=== PATIENT | female | born 2000 | race Hispanic/Latino ===

== ENCOUNTER 2023-02-04 09:46 | Emergency (ER) | payer MEDICAID, SELFPAY ==
[2023-02-04 10:00] VITALS: BP 128/78; PULSE 61; RESP 16; TEMP 37; O2SAT 99
[2023-02-04 10:10] VITALS: BP 128/78; PULSE 61; RESP 16; TEMP 37; O2SAT 99
--- NOTE | 2023-02-04 10:37 | ED.EXTPRO ---
HPI - Extremity Problem General Chief complaint: Extremity Problem,Nontraumatic Stated complaint: right hand feels numb Source: patient Mode of arrival: ambulatory Limitations: no limitations History of Present Illness HPI Narrative: Patient presents for evaluation of decreased range of motion of the right rest since yesterday. She indicates she when out drinking the night before. She fell asleep in a chair. She woke from sleep yesterday with decreased range of motion. She also has numbness in her right hand particularly in the 1st and 2nd digits. Numbness is improving. She reports some redness to the skin in the proximal aspect of right hand. She is right hand dominant. Denies any lateralizing deficits. Related Data Allergies Allergy/AdvReac Type Severity Reaction Status Date / Time No Known Allergies Allergy Mild Unverified 02/04/23 09:58 Review of Systems Review of Systems: CONSTITUTIONAL: Denies fever, chills, or sweats. EYES: Denies visual changes, redness, or discharge. ENT: Denies rhinorrhea, congestion, sore throat, or otalgia. CARDIOVASCULAR: Denies chest pain, palpitations, or edema. RESPIRATORY: Denies cough or dyspnea. GASTROINTESTINAL: Denies abdominal pain, nausea, vomiting, or diarrhea. GENITOURINARY: Denies dysuria or hematuria. SKIN: Reports mild redness in proximal aspect of right hand. Denies rash or itching. MUSCULOSKELETAL: Reports decreased ROM in right wrist NEUROLOGIC: Reports numbness in right hand. Denies headache, dizziness, or weakness. PSYCHIATRIC: Denies anxiety or depression. PMFSH Past Medical History Medical History No pertinent past medical history Surgical History Surgical History No pertinent past surgical history Family History Family History Mother Family history non-contributory Social History Social History Alcohol intake: current Alcohol use details: social Substance use: never Living arrangements: alone Gender identity (if verbalized by the patient): Female Exam Narrative: GENERAL: Well-appearing, well-nourished, and in no acute distress. HEAD: Normocephalic, atraumatic. EYES: PERRLA and EOMI. ENT: Nares clear, no rhinorrhea or epistaxis. Mucous membranes moist. Oropharynx without tonsillar hypertrophy exudate or other lesions. Bilateral TMs pearly matthews nonbulging NECK: Supple. No adenopathy or masses. No carotid bruits or JVD CHEST: Clear to auscultation. No respiratory distress. No wheezes rales or rhonchi HEART: Regular rate and rhythm. No murmur heard. Normal peripheral pulses. 2+bilateral radial pulses ABDOMEN: Soft, nontender, nondistended, normal active bowel sounds. EXTREMITIES: Wrist drop to right wrist with decreased range of motion. No crepitus or deformity. SKIN: Warm, dry, no rash. NEURO: No focal deficits. Sensation intact to right wrist and hand. 4/5 hand outside sales executive strength on right. 5/5 hand outside sales executive strength on the left. Alert and oriented x3. PSYCH: Normal mood and affect. Course Course Emergency Course: This is a 22-year-old female who presented for evaluation of numbness in the right hand and decreased ROM in right wrist. This is a classic presentation of Sunday night palsy. Pulses strong. Will dc with medrol dose nicolas and hand surgeon follow up. Advised she should purchase OTC velcro wrist splint. Go to ER for change in temperature or worsening symptoms. patient in agreement with plan of care. Level of Care: Express Care Visit Vital Signs Vital signs: Vital Signs Temperature 37.0 C 02/04/23 10:00 Pulse Rate 61 02/04/23 10:00 Respiratory Rate 16 02/04/23 10:00 Blood Pressure 128/78 02/04/23 10:00 Pulse Oximetry 99 02/04/23 10:00 Oxygen Delivery Room Air
== END 2023-02-04 10:40 | disposition home or self-care (01) ==
PROVIDERS: Emergency Provider Nurse Practitioner; PCP Physician Assistant
DX: G56.31 Lesion of radial nerve, right upper limb (principal)
CPT/HCPCS: 99213; G0463

== ENCOUNTER 2023-12-19 08:32 | Emergency (ER) | payer BC, SELFPAY ==
--- NOTE | 2023-12-19 08:34 | ED.URI ---
HPI - URI/Sore Throat General Chief Complaint: Upper Respiratory Infection Stated Complaint: Sore Throat Time Seen by Provider: 12/19/23 08:34 Source: patient Mode of arrival: ambulatory Limitations: no limitations History of Present Illness HPI Narrative: Patient is a 23-year-old female who presents with 2 days sore throat. Congestion and cough started yesterday. Patient for symptoms. Denies any fever, chills nausea vomiting diarrhea. Reports work is requesting COVID test. Related Data Home Medications Medication Instructions Recorded Confirmed No Home Medications 12/19/23 12/19/23 Allergies Allergy/AdvReac Type Severity Reaction Status Date / Time No Known Allergies Allergy Mild Verified 12/19/23 08:47 Review of Systems Review of Systems: All systems reviewed & are unremarkable except as noted in HPI and below Constitutional: Constitutional: Denies body ache(s), Denies chills, Denies fatigue, Denies fever(s), Denies headache(s), Denies malaise and Denies weakness Eyes: Eyes: Denies blurry vision, Denies itchy eyes and Denies loss of vision ENT: Denies otalgia, Denies headache(s), Reports nasal congestion, Denies sinus pain and Reports sore throat Cardiovascular: Cardiovascular: Denies chest pain, Denies irregular heart rhythm and Denies dyspnea Respiratory: Respiratory: Reports cough and Denies dyspnea Gastrointestinal: Gastrointestinal: Denies abdominal pain, Denies diarrhea, Denies nausea and Denies vomiting Musculoskeletal: Musculoskeletal: Denies back pain, Denies myalgias and Denies arthralgias Integumentary/Breasts: Skin/Breast: Denies pruritus and Denies rash Neurologic: Denies headache(s), Denies loss of vision and Denies weakness Psychiatric: Psychiatric: Reports no additional psychiatric complaints Endocrine: Endocrine: Denies fatigue Allergic/Immunologic: Allergic/Immunologic: Denies itchy eyes PMFSH Past Medical History Medical History No pertinent past medical history Surgical History Surgical History No pertinent past surgical history Family History Family History Mother Family history non-contributory Social History Social History Alcohol intake: current Alcohol use details: social Substance use: never Living arrangements: alone Gender identity (if verbalized by the patient): Female Comments At time of signature, agree with nursing past medical, surgical, social and family history. There is no relevant family history pertinent to the presenting complaint. Exam Const: General: cooperative, healthy appearing, comfortable, no acute distress and well nourished Nutritional Appearance: well nourished Orientation/consciousness: patient oriented x3 Limitations: no limitations HENMT: Head: normal to inspection, normocephalic and atraumatic Ears: hearing grossly normal bilaterally, external ears normal, TM's normal bilaterally, EAC's normal and no periauricular adenopathy Face/Nose/Sinus: Normal external nose present, Abnormal mucous membranes and turbinates present erythematous bilateral and diffuse, normal facial exam, sinuses nontender and face symmetric Face and sinus: normal facial exam, sinuses nontender and face symmetric Mouth: Yes Normal oral and palatal mucosa present, Yes lip normal, Yes tongue normal, Yes Normal salivary glands and ducts present, Yes oropharynx normal and Yes moist mucous membranes Teeth and gingiva: dentition normal Throat: posterior oropharynx normal, tonsils normal and uvula midline Eyes: General: appearance normal, both eyes and all related structures Alignment and Position: alignment normal and position normal Periorbital: periorbital findings normal Eyelids: eyelids normal Pupils: Equal, round and reactive pupils
[2023-12-19 08:44] VITALS: BP 110/68; PULSE 84; RESP 18; TEMP 37.1; O2SAT 99
[2023-12-19 09:26] LABS: EDSTREPNEGPOS1 Negative (Negative)
[2023-12-19 09:35] LABS: EDINFLUASCREEN Negative (Negative); EDINFLUBSCREEN Negative (Negative)
== END 2023-12-19 09:05 | disposition home or self-care (01) ==
PROVIDERS: Emergency Provider Nurse Practitioner Family
DX: J06.9 Acute upper respiratory infection, unspecified (principal)
CPT/HCPCS: 87081; 87804; 87880; 99213; G0463

== ENCOUNTER 2024-08-08 19:29 | Emergency (ER) | payer MEDICAID, SELFPAY ==
--- NOTE | ~2024-08-08 | US_ITS ---
EXAMINATION: US OB <=14 wk fetus w TV DATE: 08/09/2024 0:00 CDT INDICATION: Vaginal bleeding COMPARISON: 12/19/2023 TECHNIQUE: Real-time transabdominal obstetric ultrasound. FINDINGS: Serum quantitative beta hCG measures 1768 2 para 1. Last menstrual period is given as 06/27/2024 Estimated date of delivery by last menstrual period is 04/03/2025 The uterus measures 9.6 x 4.4 x 5.9 cm. A gestational sac is identified within the uterus. A pole is identified, with a crown-rump length that measures 0.27 cm, corresponding to an appro ximate gestational age of 5 weeks and 6 days. cardiac activity is identified at a rate of 117 bpm. The right ovary measures 2.4 x 1.7 x 1.6 cm. The left ovary measures 1.9 x 1.7 x 3.2 cm. Estimated date of delivery by ultrasound is 04/04/2025 IMPRESSION: Single intrauterine gestation with an approximate gestational age of 5 weeks and 6 days, with c ardiac activity identified. Reviewed, dictated and finalized at location A. IMPRESSION: Single intrauterine gestation with an approximate gestational age of 5 weeks an d 6 days, with cardiac activity identified.
--- OUTSIDE RECORDS SUMMARY | 2024-08-08 19:31 | XMS_ITS | Clinical Summary ---
Author Organization [facility] Address [address] [place] [address] Care Team Providers Care Materials Manager Name Role Phone Shavonne Purvis MD Primary Care Provider [phone] Source Comments [facility],non-owned Affiliates and Associated Physician Practices is amultiple site organization consisting of ambulatory clinics and hospital sitesin [place], [place], [place] and [place]. This disclosure is being madepursuant to the Care Everywhere program and may not contain all information available regarding this patient. Last updated 17.[facility] Active Problems Problem Noted Date Diagnosed Date Supervision of normal first teen 01/09 with uncertain dates 01/10/2016 Encounter for ultrasound to check growth 1 Unsure of LMP (last menstrua l period) as reason for ultrasound scan 12/14/2015 Late care 12/14/2015 Social History Tobacco Use Types Packs/Day Years Used Date Smoking Tobacco: Never Assessed Comments No Sex and Gender Information Value Date Recorded Sex Assigned at Not on file Legal Sex Female 11:05 AM CDT Gender Identity Not on file Sexual Orientation Not on file Plan of Treatment Health Maintenance Due Date Last Done Comments HIV SCREENING 06/28/2014 HPV VACCINE (1 - 3-dose series) 06/28/2014 CHLAMYDIA/GONORRHEA SCREENING 2015 HEPATITIS C SCREENING 06/24/2017 DTAP/TDAP/TD VACCINES (1 - Tdap) 06/28/2018 HEPATITIS B VACCINE (1 of 3 - 19+ 3-dose series) 06/28/2018 COVID-19 VACCINE (1 - 2023-2 5 season) 2023 DEPRESSION SCREENING 03/19/2024 INFLUENZA VACCINE (Season Ended) 2024 ZOSTER VACCINE (1 of 2) 06/28/2049 HIB VACCINE Aged Out No longer eligi ble based on patient's age to complete this topic MENINGOCOCCAL (Group B) VACC INE SHARED DECISION-MAKING Aged Out No longer eligibl e based on patient's age to complete this topic MENINGOCOCCAL GROUPS A/C/Y/W VACCINE Aged Out No longer eligible b ased on patient's age to complete this topic PNEUMOCOCCAL VACCINE Aged Out No long er eligible based on patient's age to complete this topic Insurance [facility] Care Teams Materials Manager Relationship Specialty Start Date End Date Shavonne Purvis MD [address] [place] [address] PCP - General Family Medicine 12/17/15
[2024-08-08 19:36] VITALS: BP 120/75; PULSE 70; RESP 16; TEMP 36.9; O2SAT 100
--- OUTSIDE RECORDS SUMMARY | 2024-08-08 20:57 | XMS_ITS | Clinical Summary ---
Author Organization [facility] Address [address] [place] [address] Care Team Providers Care Clinical Nursing Manager Name Role Phone Shavonne Purvis MD Primary Care Provider [phone] Source Comments [facility],non-owned Affiliates and Associated Physician Practices is amultiple site organization consisting of ambulatory clinics and hospital sitesin [place], [place], [place] and [place]. This disclosure is being madepursuant to the Care Everywhere program and may not contain all information available regarding this patient. Last updated 17.[facility] Active Problems Problem Noted Date Diagnosed Date [...] patient's age to complete this topic Insurance [facility] Care Teams Clinical Nursing Manager Relationship Specialty Start Date End Date Shavonne Purvis MD [address] [place] [address] PCP - General Family Medicine 12/17/15
--- NOTE | 2024-08-08 21:06 | ED.FEMALEGU ---
HPI - Female Genitourinary General Chief complaint: ASSISTANT DEPARTMENT MANAGER Stated complaint: 6wks preg, spotting-denies cramping Time Seen by Provider: 08/08/24 20:45 Source: patient Mode of arrival: ambulatory Limitations: no limitations History of Present Illness HPI Narrative: 24-year-old female (patient does not believe she has a history of premature delivery but she states that her BRET for her first child was Mar 30 and she delivered on Mar 07 which would represent >21 days early ?) who is stated approximately 6 weeks presents with concern for vaginal bleeding/spotting. She noticed some pink flex of possible blood in the toilet and then pink on the toilet paper when she wiped. Has pictures. She denies any abdominal pain or cramps. Last menstrual period 06/27/2024. She had 2 positive home test on 07/30/2024. She previously had gynecological care through [facility] in [place], Dr Alberto. No confirmation yet of an intrauterine for this and she has an upcoming appointment to establish obstetric care (not yet established) on 08/19/24 through [facility]. she denies any dysuria, any urgency, frequency, or hematuria. No history of STIs. Denies any other vaginal discharge. No fevers or chills. She has had intermittent back pain, possibly L > right. Has not yet taken anything for pain as she found it to be mild. She is taking her vitamin. Related Data Allergies Allergy/AdvReac Type Severity Reaction Status Date / Time No Known Allergies Allergy Mild Verified 08/08/24 19:30 [facility] Past Medical History Medical History No pertinent past medical history Surgical History Surgical History No pertinent past surgical history Family History Family History Mother Family history non-contributory Social History Social History Alcohol intake: current Alcohol use details: social Substance use: never Living arrangements: alone Gender identity (if verbalized by the patient): Female Exam Narrative: GENERAL: Well-appearing, well-nourished, and in no acute distress. HEAD: Normocephalic, atraumatic. EYES: Non injected, non icteric ENT: Nares clear, no rhinorrhea or epistaxis. Gross auditory acuity intact. NECK: Supple. No meningismus. CHEST: Speaking in full sentences. No respiratory distress. HEART: Regular rate and rhythm. . ABDOMEN: Soft, nondistended. No rigidity or guarding. Not peritoneal EXTREMITIES: Normal range of motion. No lower extremity edema. : Speculum exam performed with nurse Amie present as development system efficiency manager/mechanic's assistant. Normal external genitalia without lesions, masses, erythema, induration. [place]/brown discharge around the fornix. Patient tolerates well. Os closed. SKIN: Warm, dry, no rash. NEURO: No focal deficits. Alert and oriented. Answering questions. Following commands. Normal speech without aphasia or dysarthria. PSYCH: Normal mood and affect. Course Vital Signs Vital signs: Vital Signs Temperature 98.4 F 08/08/24 19:36 Pulse Rate 70 08/08/24 19:36 Respiratory Rate 16 08/08/24 19:36 Blood Pressure 120/75 08/08/24 19:36 Pulse Oximetry 100 08/08/24 19:36 Oxygen Delivery Room Air 08/08/24 19:36 Temperature 97.8 F 08/09/24 01:18 Pulse Rate 69 08/09/24 01:18 Respiratory Rate 16 08/09/24 01:18 Blood Pressure 124/74 08/09/24 01:18 Pulse Oximetry 100 08/09/24 01:18 Oxygen Delivery Room Air 08/08/24 19:36 MDM - Female Genitourinary MDM Narrative Medical decision making narrative: This patient is a 24 yo G 2 P1 female who is approximately 6w0d GA by stated LMP 06/27/24 who comes to the emergency department with vaginal bleeding/spotting/discharge. In the emergency department she is afebrile and hemodynamically stable with VS WNL. Serum beta hCG (quantitative) are ordered. Beta-hCG is >1700 , well above the discriminatory zone so proceed with ultrasound imaging given has not had confirmation of IUP. This demonstrates IUP. Urine does not appear to be infected. Discussed the findings of an intrauterine cardiac activity with the patient. Discussed that sometimes vaginal bleeding during is normal in the is likely to continue without incident however discuss that while she does not seem to actively be miscarrying, this remains a possibility and patient was given strict emergency care department return precautions. She verifies understanding is in agreement. Advised to follow-up with her Ob Gyne we keeping her upcoming appointment and informing them that she presented to the emergency department. She verifies understanding. Prescribed o acetaminophen and discussed that this is safe to take during as needed. Differential Diagnosis Differential diagnosis: Likely urinary tract infection (also considered pyelo, asymptomatic bacteriuiria in ; vaginal bleeding in ; miscarriage spectrum; ectopic) and cystitis Lab Data Attestation: I reviewed the patient's lab results. Lab results narrative: Very mild leukocytosis 08/08/24 21:46 08/08/24 21:46 Labs: Lab Results 08/08/24 08/08/24 Range/Units 21:46 21:52 WBC 10.1 H (4.5-10.0) K/mm3 RBC 4.33 (4.2-5.4) M/mm3 Hgb 12.6 (12.0-15.0) g/dL Hct 38.3 (37.0-47.0) % MCV 88.5 (80-100) fl MCH 29.1 (26-34) pg MCHC 32.9 (32-36) g/dl RDW 12.8 (11.5-14.5) % Plt Count 257 (150-375) k/mm3 MPV 10.0 (7.4-10.4) fl Immature Gran % (Auto) 0.3 (0-0.5) % Neut % (Auto) 54.4 (45.5-73.1) % Lymph % (Auto) 33.3 (18.3-44.2) % [place] % (Auto) 7.1 (2.6-8.5) % Eos % (Auto) 4.5 H (0-4.4) % Baso % (Auto) 0.4 (0.2-1.2) % Lymph # (Auto) 3.37 H (0.9-3.2) K/mm3 [place] # (Auto) 0.7 H (0.1-0.6) K/mm3 Eos # (Auto) 0.5 H (0-0.3) K/mm3 Baso # (Auto) 0.0 (0.0-0.1) K/mm3 Abs Immat Gran (auto) 0.03 (0.00-0.031) K/mm3 Absolute Neuts (auto) 5.5 (1.3-6.7) K/mm3 Absolute Nucleated RBC 0.000 (0.0-0.012) K/mm3 Nucleated RBC % 0.0 (0.0-0.2) % PT 13.2 (11.1-14.7) Seconds INR 1.0 APTT 31.2 (22.3-36.8) Seconds Sodium 140 (137-145) mmol/L Potassium 4.1 (3.4-5.0) mmol/L Chloride 109 H (98-107) mmol/L Carbon Dioxide 20 L (22-30) mmol/L Anion Gap 11 (4-12) mmol/L BUN 9 (7-17) mg/dL Creatinine 0.78 (0.7-1.0) mg/dL Estim Creat Clear Calc 76 ml/min Estimated GFR > 60 (59 - ) Glucose 98 (65-110) mg/dL Calcium 8.6 (8.4-10.2) mg/dL Total Bilirubin 0.3 (0.2-1.3) mg/dL AST 33 (14-36) U/L ALT 38 H (6-35) U/L Alkaline Phosphatase 106 (38-126) U/L Total Protein 7.0 (6.3-8.2) g/dL Albumin 4.4 (3.5-5.1) g/dL Beta HCG, Quant 1768.10 mIU/ML Urine Color Yellow (Yellow) Urine Appearance Clear (Clear) Urine pH 7.5 (5.0-9.0) Ur Specific [place] 1.017 (1.001-1.035) Urine Protein Negative (Negative) mg/dL Urine Glucose (UA) Negative (Negative) mg/dL Urine Ketones Negative (Negative) mg/dL Ur Blood (Man) Negative (Negative) Urine Nitrate Negative (Negative) Urine Bilirubin Negative (Negative) Urine Urobilinogen 1.0 (<2.0) mg/dL Leukocyte Esterase Rfl Negative (Negative) MONIKA/UL POC Urine HCG, Qual Positive (Negative) Blood Type O Positive Antibody Screen Negative Screen Not Reportable Baby's Blood Type Not Reportable Baby's AFSHIN Not Reportable Doses of RhIg Required 0 Imaging Data Radiologist's impression: Impressions Obstetrics Ultrasound 08/09/24 00:00 IMPRESSION: Single intrauterine gestation with an approximate gestational age of 5 weeks and 6 days, with cardiac activity identified. Discharge Plan Discharge Clinical Impression: Vaginal discharge during in first trimester, Intrauterine Patient Disposition: Home Condition: Stable Instructions: Antibiotic Form, Threatened Miscarriage (ED), (ED), Non-Threatening First Trimester Vaginal Bleed (ED) Additional Instructions: Estimated date of delivery by ultrasound is 04/04/2025 Single intrauterine gestation with an approximate gestational age of 5 weeks and 6 days, with cardiac activity identified. Keep your upcoming appointment with ObGyn through [facility]. For some people, some vaginal bleeding/discharge is normal during , e.g. early . As we discussed, It does not appear that your miscarrying currently but we always caution on indications to return to the ED: Intractable pain not responding to acetaminophen/Tylenol which is safe to take during , intractable nausea or vomiting, fever greater than 100.4? F, bleeding where your saturating a maxi pad or 2 per hour for 2-3 hours, shortness of breath, feeling faint/passing out. Patient Language: Chinese Prescriptions: New acetaminophen 650 mg tablet extended release 650 mg PO Q8H PRN (Reason: pain) Qty: 30 0RF Follow-up/Referrals: [facility] [Primary Care Provider] - Stand Alone Forms: Work/School Release IP Time of Disposition: 01:07
[2024-08-08 21:55] LABS: BEDSIDEPREGUCG Positive (Negative)
[2024-08-08 21:55] LABS: Basophils Percent Auto 0.4 % (0.2-1.2); Eosinophils Absolute Auto 0.5 K/mm3 (0-0.3); Eosinophils Percent Auto 4.5 % (0-4.4); Hematocrit 38.3 % (37.0-47.0); Hemoglobin 12.6 g/dL (12.0-15.0); Immature Granulocyte Absolute 0.03 K/mm3 (0.00-0.031); Immature Granulocyte Percent A 0.3 % (0-0.5); Lymphocytes Absolute Auto 3.37 K/mm3 (0.9-3.2); Lymphocytes Percent Auto 33.3 % (18.3-44.2); Mean Corpuscular HGB Conc 32.9 g/dl (32-36); Mean Corpuscular Hemoglobin 29.1 pg (26-34); Mean Corpuscular Volume 88.5 fl (80-100); Monocytes Absolute Auto 0.7 K/mm3 (0.1-0.6); Monocytes Percent Auto 7.1 % (2.6-8.5); Neutrophils Absolute Auto 5.5 K/mm3 (1.3-6.7); Neutrophils Percent Auto 54.4 % (45.5-73.1); Platelet Count Result 257 k/mm3 (150-375); Red Blood Count 4.33 M/mm3 (4.2-5.4); Red Cell Distribution Width 12.8 % (11.5-14.5); White Blood Count 10.1 K/mm3 (4.5-10.0)
[2024-08-08 21:56] LABS: Add Urine Microscopic? NO; Appearance Urine Clear (Clear); Bilirubin Urine Negative (Negative); Blood Urine Negative (Negative); Color Urine Yellow (Yellow); Glucose Urine UA Negative (Negative); Ketones Urine Negative (Negative); Leukocyte Esterase Ur Negative LEU/UL (Negative); Nitrate Urine Negative (Negative); Protein Urine Negative (Negative); Specific Grav Ur 1.017 (1.001-1.035); pH Urine 7.5 (5.0-9.0)
[2024-08-08 22:03] VITALS: BP 111/67; PULSE 73; RESP 14; O2SAT 100
[2024-08-08 22:07] LABS: Partial Thromboplastin Time 31.2 Seconds (22.3-36.8); Prothrombin Time 13.2 Seconds (11.1-14.7)
[2024-08-08 22:12] LABS: Alanine Aminotransferase 38 U/L (6-35); Albumin Level 4.4 g/dL (3.5-5.1); Alkaline Phosphatase 106 U/L (38-126); Anion Gap 11 mmol/L (4-12); Aspartate Amino Transferase 33 U/L (14-36); Bilirubin,Total 0.3 mg/dL (0.2-1.3); Blood Urea Nitrogen 9 mg/dL (7-17); Calcium 8.6 mg/dL (8.4-10.2); Carbon Dioxide 20 mmol/L (22-30); Chloride 109 mmol/L (98-107); Estimated CRCL calculation 76 ml/min; Estimated Glomerular Filt Rate > 60; Glucose 98 mg/dL (65-110); Potassium 4.1 mmol/L (3.4-5.0); Sodium 140 mmol/L (137-145)
[2024-08-08 22:48] VITALS: O2SAT 99
[2024-08-08 23:01] VITALS: BP 124/74; O2SAT 100
[2024-08-08 23:02] VITALS: O2SAT 99
[2024-08-09 00:02] VITALS: O2SAT 99
[2024-08-09 00:15] VITALS: O2SAT 100
[2024-08-09 00:30] VITALS: O2SAT 99
[2024-08-09 01:06] VITALS: O2SAT 100
[2024-08-09 01:18] VITALS: BP 124/74; PULSE 69; RESP 16; TEMP 36.6; O2SAT 100
== END 2024-08-09 01:19 | disposition home or self-care (01) ==
PROVIDERS: Emergency Provider Student in an Organized Health Care Education/Training Program
DX: O26.851 Spotting complicating pregnancy, first trimester (principal); Z3A.01 Less than 8 weeks gestation of pregnancy
CPT/HCPCS: 36415; 76801; 76817; 80053; 81003; 81025; 84702; 85025; 85461; 85610; 85730; 86850; 86900; 86901; 99284

== ENCOUNTER 2024-08-13 21:36 | Emergency (ER) | payer MEDICAID, SELFPAY ==
--- NOTE | ~2024-08-13 | US_ITS ---
US OB <=14 wk fetus w TV Ordering provider: Penelope Galarza APRN History: . vaginal bleeding, cramping . Comparison: None. Technique: Transabdominal and endovaginal ultrasound of the pelvis (Doppler ultrasound interrogation techniques used as needed for this exam.) FINDINGS: CERVIX: Normal. UTERUS: Measures 8.9x 4.6x 5.6 cm in length which is within normal limits and is anteverted. No myom etrial masses. No gestational sac seen. ENDOMETRIUM: Normal in thickness measuring 4 mm. No endometrial masses, cysts or fluid. CUL DE SAC: No free fluid. RIGHT OVARY: Normal in size m Normal echotexture. Doppler vascular flow present. LEFT OVARY: Normal in size. Normal echotexture. Doppler vascular flow present. ADNEXA: Normal. No mass. IMPRESSION: No acute intrauterine seen. normal pelvic ultrasound. Reviewed, dictated and finalized at location A.
[2024-08-13 21:38] VITALS: BP 134/87; PULSE 89; RESP 18; TEMP 36.8; O2SAT 100
[2024-08-13 22:11] LABS: Basophils Percent Auto 0.4 % (0.2-1.2); Eosinophils Absolute Auto 0.4 K/mm3 (0-0.3); Eosinophils Percent Auto 4.3 % (0-4.4); Hemoglobin 12.7 g/dL (12.0-15.0); Immature Granulocyte Absolute 0.03 K/mm3 (0.00-0.031); Immature Granulocyte Percent A 0.3 % (0-0.5); Lymphocytes Absolute Auto 3.32 K/mm3 (0.9-3.2); Lymphocytes Percent Auto 35.4 % (18.3-44.2); Mean Corpuscular HGB Conc 32.6 g/dl (32-36); Mean Corpuscular Hemoglobin 28.9 pg (26-34); Mean Corpuscular Volume 88.6 fl (80-100); Mean Platelet Volume 9.9 fl (7.4-10.4); Monocytes Absolute Auto 0.7 K/mm3 (0.1-0.6); Neutrophils Absolute Auto 4.9 K/mm3 (1.3-6.7); Neutrophils Percent Auto 52.6 % (45.5-73.1); Platelet Count Result 252 k/mm3 (150-375); Red Cell Distribution Width 12.6 % (11.5-14.5); White Blood Count 9.4 K/mm3 (4.5-10.0)
[2024-08-13 22:22] LABS: Alanine Aminotransferase 31 U/L (6-35); Albumin Level 4.6 g/dL (3.5-5.1); Alkaline Phosphatase 73 U/L (38-126); Anion Gap 7 mmol/L (4-12); Aspartate Amino Transferase 30 U/L (14-36); Bilirubin,Total 0.3 mg/dL (0.2-1.3); Blood Urea Nitrogen 10 mg/dL (7-17); Calcium 9.3 mg/dL (8.4-10.2); Carbon Dioxide 28 mmol/L (22-30); Chloride 106 mmol/L (98-107); Estimated CRCL calculation 90 ml/min; Estimated Glomerular Filt Rate > 60; Glucose 104 mg/dL (65-110); Potassium 3.9 mmol/L (3.4-5.0); Sodium 141 mmol/L (137-145)
[2024-08-13 22:23] LABS: Prothrombin Time 13.2 Seconds (11.1-14.7)
[2024-08-13 22:38] LABS: Beta HCG Quantitative 356.74 mIU/ML
--- NOTE | 2024-08-14 00:38 | ED_ITS ---
HPI - General Chief complaint: [employer] Stated complaint: 6wks preg-bleeding, passed clot Time Seen by Provider: 08/13/24 23:50 History of Present Illness HPI Narrative: 24-year-old female presenting to the emergency department for persistent vaginal bleeding in the setting of . Patient was diagnosed with a recently during her hospital visit 08/08/2024. This is her 2nd and she is . She states that since her discharge she has been having persistent vaginal bleeding and now progressing the clot passage. She went to an outside hospital ER today and was turned away after they told her they did not have any ultrasound capabilities and patient states they did not have any blood work done or any examination. She came to the hospital here for evaluation. She exhibits no pain with vaginal bleeding, no fever, chills, abdominal pain, back pain, headache or vision changes. No complications during previous pregnancies. States that this was an unplanned and her ultrasound previously showed an approximately 5 week 6 day with cardiac activity. Related Data Allergies Allergy/AdvReac Type Severity Reaction Status Date / Time No Known Allergies Allergy Mild Verified 08/13/24 21:38 Review of Systems 2 Review of Systems: As reviewed above in HPI [facility] Past Medical History Medical History No pertinent past medical history Surgical History Surgical History No pertinent past surgical history Family History Family History Mother Family history non-contributory Social History Social History Alcohol intake: current Alcohol use details: social Substance use: never Living arrangements: alone Gender identity (if verbalized by the patient): Female Exam 2 Narrative: GENERAL: [Well-appearing, well-nourished, and in no acute distress.] HEAD: [Normocephalic, atraumatic.] EYES: [PERRLA and EOMI.] ENT: Nares clear, no rhinorrhea or epistaxis. Mucous membranes moist. NECK: Supple. CHEST: [Clear to auscultation. No respiratory distress.] HEART: [Regular rate and rhythm]. No murmur heard. [Normal peripheral pulses.] ABDOMEN: [Soft, nondistended], [nontender], [No rigidity or guarding] EXTREMITIES: Normal range of motion. [No edema.] SKIN: Warm, dry, no rash. NEURO: [No focal deficits]. Alert and oriented [x3.] PSYCH: [Normal mood and affect.] Course Vital Signs Vital signs: Vital Signs Temperature 36.8 C 08/13/24 21:38 Pulse Rate 89 08/13/24 21:38 Respiratory Rate 18 08/13/24 21:38 Blood Pressure 134/87 08/13/24 21:38 Pulse Oximetry 100 08/13/24 21:38 Oxygen Delivery Room Air 08/13/24 21:38 Temperature 36.8 C 08/13/24 21:38 Pulse Rate 89 08/13/24 21:38 Respiratory Rate 18 08/13/24 21:38 Blood Pressure 134/87 08/13/24 21:38 Pulse Oximetry 100 08/13/24 21:38 Oxygen Delivery Room Air 08/13/24 21:38 MDM - OB/Uterine Contractions MDM Narrative Medical decision making narrative: 24-year-old female presenting to the emergency department for persistent vaginal bleeding. She was seen in the ER several days ago and diagnosed with a first-trimester and vaginal bleeding with return precautions for threatened /miscarriage. She has not established with an OBGYN yet and she went to another hospital where they were not able to do any workup on her so patient came here. She is not any acute distress but exhibiting vaginal bleeding and showed me pictures at bedside including clot passage and vaginal bleeding and spotting on her pad/toilet bowl. She is hemodynamically stable without any tachycardia, fever, hypoxia. Nontender abdomen. Considerations presently are for a threatened miscarriage, complete miscarriage, missed miscarriage versus normal vaginal bleeding in 1st trimester . Blood work was obtained to rule out any significant hemorrhage or anemia, ultrasound was obtained and patient was re-evaluated afterwards. Patient's workup shows no leukocytosis or anemia. No Rhogam needed. Normal platelet count. Normal coagulation panel. Normal electrolytes, normal renal and hepatic function panel. Normal glucose. Beta hCG is 356 and down trending from 5 days ago consistent with her ultrasound results today showing no intrauterine and overall normal pelvic ultrasound otherwise. Compared to her ultrasound report from 5 days ago and independently reviewed on imaging she has what appears to be a complete miscarriage at this time. No appreciable retained material noted. I discussed this with the patient at bedside and had all her questions answered. Patient is sad but verbalized understanding the expected management going forward and the return precautions upon discharge. She was given paperwork and safely discharged home at this time. Medical Records Attestation: I reviewed the patient's medical records. Lab Data Attestation: I reviewed the patient's lab results. 08/13/24 22:03 08/13/24 22:03 Labs: Lab Results 08/13/24 Range/Units 22:03 WBC 9.4 (4.5-10.0) K/mm3 RBC 4.40 (4.2-5.4) M/mm3 Hgb 12.7 (12.0-15.0) g/dL Hct 39.0 (37.0-47.0) % MCV 88.6 (80-100) fl MCH 28.9 (26-34) pg MCHC 32.6 (32-36) g/dl RDW 12.6 (11.5-14.5) % Plt Count 252 (150-375) k/mm3 MPV 9.9 (7.4-10.4) fl Immature Gran % (Auto) 0.3 (0-0.5) % Neut % (Auto) 52.6 (45.5-73.1) % Lymph % (Auto) 35.4 (18.3-44.2) % Troup % (Auto) 7.0 (2.6-8.5) % Eos % (Auto) 4.3 (0-4.4) % Baso % (Auto) 0.4 (0.2-1.2) % Lymph # (Auto) 3.32 H (0.9-3.2) K/mm3 Troup # (Auto) 0.7 H (0.1-0.6) K/mm3 Eos # (Auto) 0.4 H (0-0.3) K/mm3 Baso # (Auto) 0.0 (0.0-0.1) K/mm3 Abs Immat Gran (auto) 0.03 (0.00-0.031) K/mm3 Absolute Neuts (auto) 4.9 (1.3-6.7) K/mm3 Absolute Nucleated RBC 0.000 (0.0-0.012) K/mm3 Nucleated RBC % 0.0 (0.0-0.2) % PT 13.2 (11.1-14.7) Seconds INR 1.0 APTT 32.0 (22.3-36.8) Seconds Sodium 141 (137-145) mmol/L Potassium 3.9 (3.4-5.0) mmol/L Chloride 106 (98-107) mmol/L Carbon Dioxide 28 (22-30) mmol/L Anion Gap 7 (4-12) mmol/L BUN 10 (7-17) mg/dL Creatinine 0.74 (0.7-1.0) mg/dL Estim Creat Clear Calc 90 ml/min Estimated GFR > 60 (59 - ) Glucose 104 (65-110) mg/dL Calcium 9.3 (8.4-10.2) mg/dL Total Bilirubin 0.3 (0.2-1.3) mg/dL AST 30 (14-36) U/L ALT 31 (6-35) U/L Alkaline Phosphatase 73 (38-126) U/L Total Protein 8.0 (6.3-8.2) g/dL Albumin 4.6 (3.5-5.1) g/dL Beta HCG, Quant 356.74 mIU/ML Blood Type O Positive Antibody Screen Negative Screen TNP Baby's Blood Type Not Reportable Baby's AFSHIN Not Reportable Doses of RhIg Required 0 Imaging Data Attestation: I personally reviewed and interpreted this imaging study as follows: My impression: Impressions Obstetrics Ultrasound 08/13/24 23:35 IMPRESSION: No acute intrauterine seen. normal pelvic ultrasound. Discharge Plan Discharge Clinical Impression: Complete miscarriage Patient Disposition: Home Condition: Stable Instructions: Antibiotic Form, Miscarriage (ED) Additional Instructions: Your ultrasound report here shows no intrauterine , no tissue,and you have had a complete miscarriage at this time consistent with your symptoms and clot passing. Bleeding may persist for the next few days as well as having some cramping similar to a menstrual cycle. Follow-up with regular primary care provider. Tylenol and ibuprofen are okay for pain control. Return with any emergent concerns such as persistent bleeding, lightheadedness, passing out, worsening pain or any fever. Patient Language: Congolese Prescriptions: No Action acetaminophen 650 mg tablet extended release 650 mg PO Q8H PRN (Reason: pain) Qty: 30 0RF Follow-up/Referrals: [facility],Healthcare [Primary Care Provider] - Time of Disposition: 00:37
[2024-08-14 00:56] VITALS: BP 126/85; PULSE 77; RESP 15; O2SAT 100
== END 2024-08-14 00:58 | disposition home or self-care (01) ==
PROVIDERS: Emergency Provider Student in an Organized Health Care Education/Training Program
DX: O03.9 Complete or unspecified spontaneous abortion without complication (principal)
CPT/HCPCS: 36415; 76801; 76817; 80053; 84702; 85025; 85461; 85610; 85730; 86850; 86900; 86901; 99284